=== PATIENT | male | born 1980 | race Caucasian/White ===

== ENCOUNTER 2019-10-25 02:25 | Emergency (ER) | payer OTHER ==
[~2019-10-25] VITALS: Ht 175.3 cm; Wt 61.2 kg
[~2019-10-25 02:25] MED LIST: CEPH500 PO; HYDACE5 PO; IBUP800 PO; RXCEPH500 PO; SULTRIDS PO
[2019-10-25] MEDS ORDERED: Percocet 5-3251 EACH PO (04:30)
[2019-10-25] MEDS ORDERED: Crutch1 EACH MISC (04:32)
== END 2019-10-25 05:13 | disposition home or self-care (01) ==
LOC: ER 02:25
DX: S82.301A Unspecified fracture of lower end of right tibia, initial encounter for closed fracture (principal); S82.451A Displaced comminuted fracture of shaft of right fibula, initial encounter for closed fracture; S00.01XA Abrasion of scalp, initial encounter; F10.129 Alcohol abuse with intoxication, unspecified; W22.8XXA Striking against or struck by other objects, initial encounter
CPT/HCPCS: 29515; 70450; 73590; 96372-59; 99284-25; J1885

== ENCOUNTER 2019-11-02 11:07 | Day surgery (SDC) | payer OTHER ==
[~2019-11-02] VITALS: Ht 175.3 cm; Wt 63.2 kg
[~2019-11-02 11:07] MED LIST changes: +Crutch1 EACH MISC; +Percocet 5-3251 EACH PO
[2019-11-02] MEDS ORDERED: Ventolin/Prove6.7 GM INH (11:48)
[2019-11-02] MEDS ORDERED: PRED20 PO (11:50)
[2019-11-02] MEDS ORDERED: IBUP200 PO (11:50)
--- NOTE | 2019-11-02 13:43 | NUR ---
11/02/19 1342 Byron Maguire FRACTURE BLISTERS (OPEN) NOTED TO MEDIAL AND LATERAL SIDES ON RIGHT LOWER LEG. PER DR. WIGGINS AREA NOTED TO BE 15x7.5 ON MEDIAL SIDE & 5X3.5 ON LATERAL SIDE. LOWER EXTEMITY WITH BRUISING, REDNESS, & EDEMA. PER DR. WIGGINS- EXTERNAL FIXATION VS. PROPOSED RODDING UNTIL WOUNDS ARE HEALED. AREA SHAVED, BLISTERS TRIMMED OF SKIN, & PRE CLEANED WITH HYDROGEN PEROXIDE & ALCOHOL BY DR. Singh
--- NOTE | 2019-11-02 14:49 | NUR ---
11/02/19 1449 GINO GARG PATIENT IN RECLINER WITH FOOT ELEVATED ON PILLOW. ICE PACK BEHIND KNEE. VSS. PATIENT MEDICATED X1 WITH50 MCG IV FENTANYL.
== END 2019-11-02 16:05 | disposition home or self-care (01) ==
LOC: ORSCSDS 11:07
PROVIDERS: Orthopaedic Surgery
PROC: 0QSG35Z Reposition Right Tibia with External Fixation Device, Percutaneous Approach (ICD-10-PCS; principal; 2019-11-02 13:30)
PROC: 0HBHXZZ Excision of Right Upper Leg Skin, External Approach (ICD-10-PCS; principal; 2019-11-02 13:30)
DX: S82.201A Unspecified fracture of shaft of right tibia, initial encounter for closed fracture (principal); S82.401A Unspecified fracture of shaft of right fibula, initial encounter for closed fracture; T14.8XXA Other injury of unspecified body region, initial encounter; E16.2 Hypoglycemia, unspecified; F17.210 Nicotine dependence, cigarettes, uncomplicated
CPT/HCPCS: C1713; J0171; J0690; J1100; J1885; J2250; J2370; J2405; J2704; J3010; J7120

== ENCOUNTER 2019-11-17 10:48 | Observation (INO) | payer OTHER ==
[~2019-11-17] VITALS: Ht 175.3 cm; Wt 61.3 kg
[~2019-11-17 10:48] MED LIST changes: +IBUP200 PO; +PRED20 PO; +Ventolin/Prove6.7 GM INH
--- NOTE | 2019-11-17 11:14 | NUR ---
History, Chart, Medications and Allergies reviewed before start of procedure. Lungs clear T/O to Auscultation. Patient confirms NPO status and agrees with scheduled surgery. Patient States Post-Procedure ride home has been arranged.
--- NOTE | 2019-11-17 18:10 | NUR ---
POST OP: REPORT RECIEVED FROM ZEHRA BODY TEAM MEMBER. PT TO ROOM AT ABOUT 1640. UPON ASSESSMENT PT IS A/O,VSS. RLE IS ELEVATED AND IN BOOT. BOOT TAKEN OFF FOR ASSESSMENT AND COMFORT. MODERATE AMOUNT RED DRAINAGE AT GONZALES/MID CALF. DRESSING REINFORCED WITH ABD AND VILMA WRAP, WILL MONITOR. PT REPORTS CONSTANT PAIN, 8/10 AND APPEARS UNCOMFORTABLE. CSM IS INTACT, PT ABLE TO WIGGLE TOES AND PEDAL PULSE PALPABLE. PT MEDICATED PER EMAR, ICE PLACED AND LEG ELEVATED. WILL CTM.
--- NOTE | 2019-11-18 05:06 | NUR ---
SHIFT SUMMARY LYING IN SEMI FOWLERS WITH RIGHT LEG ELEVATED ON PILLOWS. AT START OF SHIFT PAIN WAS UNCONTROLABLE, AFTER TYLENOL, CATHIE, AND TORADOL SOON THEY WERE AVAILABLE, PAIN HAS BEEN MANAGED. DRESSING HAS BEEN C/D/I SINCE REINFORCEMENT WAS APPLIED ON DAY SHIFT. DENIES PAIN WITH 0400 ROUNDS. SAFETY MEASURES IN PLACE. WILL GIVE HAND OFF TO ONCOMING SHIFT USING SBAR.
--- NOTE | 2019-11-18 13:52 | NUR ---
1230 DR WIGGINS HERE TO SEE PATIENT AND APPLIED NEW DRESSING TO RIGHT LEG. CLEANSED BY DR WIGGINS WITH PEROXIDE, XEROFOARM GAUZE OVER INCISION SITES, 4X4 GAUZE AND ABD PAD THEN WRAPPED WITH VILMA WRAPS.
[2019-11-18] MEDS ORDERED: Augmentin 875-1 EACH PO (14:15)
[2019-11-18] MEDS ORDERED: ASPI325 PO (14:16)
[2019-11-18] MEDS ORDERED: Percocet 5-3251 EACH PO (14:17)
[2019-11-18] MEDS ORDERED: ASPI325EC PO (14:18)
[2019-11-18] MEDS ORDERED: Bactrim Ds Tab1 EACH PO (14:19)
--- NOTE | 2019-11-18 14:54 | NUR ---
1445 discharged to home
== END 2019-11-18 14:30 | disposition home health service (06) ==
LOC: ORSCMMR 10:48 → SURS 17:05 → ORSCMMR 17:06 → SURS 11-18 14:30
PROVIDERS: ADMIT Orthopaedic Surgery
PROC: 0QSG06Z Reposition Right Tibia with Intramedullary Internal Fixation Device, Open Approach (ICD-10-PCS; principal; 2019-11-17 12:30)
PROC: 0YP9XYZ Removal of Other Device from Right Lower Extremity, External Approach (ICD-10-PCS; principal; 2019-11-17 12:30)
DX: S82.201D Unspecified fracture of shaft of right tibia, subsequent encounter for closed fracture with routine healing (principal); S82.402D Unspecified fracture of shaft of left fibula, subsequent encounter for closed fracture with routine healing; F17.220 Nicotine dependence, chewing tobacco, uncomplicated
CPT/HCPCS: 94762; 96365; 96367; 96375; 96376; 97110; 97112; 97161; A9270; A9270-GY; C1713; C1769; G0378; J0696; J1170; J1885; J2250; J2405; J2704; J3010; J3370; J7120; Q0163

== ENCOUNTER → 2023-12-18 | Outpatient (CLI) | payer OTHER ==
[~2023-12-18] MED LIST changes: +ASPI325 PO; +ASPI325EC PO; +Augmentin 875-1 EACH PO; +Bactrim Ds Tab1 EACH PO; +FLUTICASONE-SA1 EAC9 INH
== END ==
LOC: LAB SHORT 09:45 → LAB 09:45
DX: J18.9 Pneumonia, unspecified organism (principal)
CPT/HCPCS: 87070; 87205

== ENCOUNTER 2024-09-23 09:55 | Emergency (ER) | payer OTHER ==
[~2024-09-23] VITALS: Ht 182.9 cm; Wt 74.8 kg
[~2024-09-23 09:55] MED LIST changes: +AMOCLA875 PO
[2024-09-23] MEDS ORDERED: Ketorolac Tromethamine 30mg Vial IM ONE (14:00)
[2024-09-23] MEDS ORDERED: Diphth,Pertuss(Acell),Tet Vac 0.5 ML VIAL IM ONE (14:00)
[2024-09-23 14:30] VITALS: BP 138/96
== END 2024-09-23 14:30 | disposition home or self-care (01) ==
LOC: ER 09:55
DX: S01.01XA Laceration without foreign body of scalp, initial encounter (principal); J45.909 Unspecified asthma, uncomplicated; W01.198A Fall on same level from slipping, tripping and stumbling with subsequent striking against other object, initial encounter; Z87.891 Personal history of nicotine dependence
CPT/HCPCS: 12004; 70450; 72125; 90471; 90715; 96372-59; 99283-25; J1885

== ENCOUNTER 2024-10-05 09:12 | Inpatient (IN) | payer OTHER ==
[~2024-10-05] VITALS: Ht 175.3 cm; Wt 65.7 kg
[2024-10-05 10:49] LABS: BASOPHILS ABSOLUTE AUTO 0.04 K/mm3 (0.00-0.23); BASOPHILS PERCENT AUTO 0 % (0-2); EOSINOPHILS ABSOLUTE AUTO 0.01 K/mm3 (0.00-0.68); EOSINOPHILS PERCENT AUTO 0 % (0-6); Hematocrit 47.4 % (37.0-53.0); Hemoglobin 16.7 g/dL (13.5-17.5); IMMATURE GRAN ABSOLUTE AUTO 0.09 K/mm3 (0.00-0.10); IMMATURE GRAN PERCENT AUTO 1 % (0-1); LYMPHOCYTES ABSOLUTE AUTO 1.34 K/mm3 (0.84-5.20); LYMPHOCYTES PERCENT AUTO 9 % (21-46); MONOCYTES ABSOLUTE AUTO 1.36 K/mm3 (0.16-1.47); MONOCYTES PERCENT AUTO 9 % (4-13); Mean Corpuscular HGB 35.2 pg (26.0-34.0); Mean Corpuscular HGB Conc 35.2 g/dL (31.5-36.5); Mean Corpuscular Volume 100 fL (80-100); Mean Platelet Volume 8.6 fL (9.1-12.4); NEUTROPHILS ABSOLUTE AUTO 12.82 K/mm3 (1.96-9.15); NEUTROPHILS PERCENT AUTO 82 % (41-73); Platelet Count 244 K/mm3 (150-400); RDW Coefficient Variation 14.2 % (11.7-14.2); RDW Standard Deviation 52.9 fL (35.1-46.3); Red Blood Cell Count 4.75 M/mm3 (4.30-5.90); White Blood Cell Count 15.66 K/mm3 (4.00-11.30)
[2024-10-05 11:19] LABS: Albumin/Globulin Ratio 0.7 (0.8-1.8); Bilirubin, Total 3.4 mg/dL (0.1-1.0); Bun/Creatinine Ratio 14.6 (12.0-20.0); Calcium, Blood 9.4 mg/dL (8.5-10.1); Creatinine, Blood 0.82 mg/dL (0.60-1.20); Globulin, Blood 4.6 g/dL (2.2-4.0); Potassium, Blood 4.5 mmol/L (3.5-5.5); Total Protein, Blood 7.6 g/dL (6.4-8.2)
[2024-10-05 13:02] LABS: Source, Urine Clean Catch
[2024-10-05 13:12] LABS: Appearance, Urine Cloudy (Clear); Blood, Urine 5+ (Neg); Color, Urine Amber (P-Yellow); Glucose Qualitative, Urine Neg (Neg); Ketones, Urine 1+ (Neg); Leukocyte Esterase, Urine 3+ (Neg); Nitrite, Urine Pos (Neg); Protein, Urine 4+ (Neg); Specific Gravity, Urine 1.025 (1.003-1.022); Urobilinogen, Urine 1+ (Normal)
[2024-10-05 14:04] LABS: Bacteria Mod /hpf; Bilirubin, Urine 1+ (Neg); Red Blood Cells, Urine TNTC /hpf (0-2); Squamous Epithelial Cells Not Seen /hpf (Few); White Blood Cells, Urine TNTC /hpf (0-5)
[2024-10-05] MEDS ORDERED: FLUTICASONE-SA1 EAC9 (14:39)
[2024-10-05] MEDS ORDERED: Ondansetron HCl 2 MG / ML 2ML Vial IV ONE (15:15)
[2024-10-05] MEDS ORDERED: CefTRIAXone Sodium 1,000 MG in NS 100 ML IV ONE (15:15)
[2024-10-05] MEDS ORDERED: NS 1,000 ML IV SCH ×3 (15:20→18:00)
[2024-10-05] MEDS ORDERED: PHENobarbital Sodium 65MG / ML 1ML Vial IV ONE (15:20)
[2024-10-05 16:15] LABS: International Normalized Ratio 1.1; Prothrombin Time Results 11.7 Sec (9.7-11.5)
[2024-10-05] MEDS ORDERED: LORazepam 2 MG/ML 1ML Injection IV PRN ×2 (18:00)
[2024-10-05] MEDS ORDERED: Ondansetron HCl 2 MG / ML 2ML Vial IV PRN (18:00)
[2024-10-05] MEDS ORDERED: FLU VACC TS2024-25(6MOS UP)/PF 45 MCG/0.5 ML SYRINGE IM SCH (18:00)
[2024-10-05] MEDS ORDERED: HydrALAZINE HCl 20 MG / ML 1ML Vial IV PRN (18:00)
[2024-10-05] MEDS ORDERED: ChlordiazePOXIDE 25 MG Cap PO PRN ×2 (18:05)
[2024-10-05] MEDS ORDERED: Mometasone/Formoterol MDI 200/5 mcg 13 GM INH SCH (18:10)
[2024-10-05] MEDS ORDERED: Folic Acid 1 MG in NS 50 ML IV SCH (18:30)
[2024-10-05] MEDS ORDERED: Thiamine HCl 100 MG in NS 50 ML IV SCH (19:00)
[2024-10-05 19:56] LABS: Bilirubin, Direct 1.1 mg/dL (0.0-0.3); Bilirubin, Indirect 1.7 mg/dL (0.1-0.7); Bilirubin, Total 2.8 mg/dL (0.1-1.0)
[2024-10-05] MEDS ORDERED: Lactobacil 2-S.Thermo-Bifido 1 1 Cap PO SCH (21:00)
[2024-10-05 21:47] VITALS: BP 143/94
[2024-10-06 04:07] VITALS: BP 149/99
[2024-10-06 05:10] LABS: BASOPHILS ABSOLUTE AUTO 0.05 K/mm3 (0.00-0.23); BASOPHILS PERCENT AUTO 1 % (0-2); EOSINOPHILS ABSOLUTE AUTO 0.12 K/mm3 (0.00-0.68); EOSINOPHILS PERCENT AUTO 1 % (0-6); Hematocrit 39.4 % (37.0-53.0); Hemoglobin 13.8 g/dL (13.5-17.5); IMMATURE GRAN ABSOLUTE AUTO 0.04 K/mm3 (0.00-0.10); IMMATURE GRAN PERCENT AUTO 0 % (0-1); LYMPHOCYTES ABSOLUTE AUTO 1.75 K/mm3 (0.84-5.20); LYMPHOCYTES PERCENT AUTO 18 % (21-46); MONOCYTES ABSOLUTE AUTO 0.75 K/mm3 (0.16-1.47); MONOCYTES PERCENT AUTO 8 % (4-13); Mean Corpuscular HGB 35.1 pg (26.0-34.0); Mean Corpuscular Volume 100 fL (80-100); Mean Platelet Volume 9.6 fL (9.1-12.4); NEUTROPHILS ABSOLUTE AUTO 7.21 K/mm3 (1.96-9.15); NEUTROPHILS PERCENT AUTO 73 % (41-73); Platelet Count 217 K/mm3 (150-400); RDW Coefficient Variation 13.7 % (11.7-14.2); RDW Standard Deviation 50.5 fL (35.1-46.3); Red Blood Cell Count 3.93 M/mm3 (4.30-5.90); White Blood Cell Count 9.92 K/mm3 (4.00-11.30)
[2024-10-06 05:51] LABS: Albumin, Blood 2.3 g/dL (3.4-5.0); Albumin/Globulin Ratio 0.7 (0.8-1.8); Bilirubin, Total 2.1 mg/dL (0.1-1.0); Bun/Creatinine Ratio 24.3 (12.0-20.0); Calcium, Blood 8.2 mg/dL (8.5-10.1); Creatinine, Blood 0.66 mg/dL (0.60-1.20); Globulin, Blood 3.4 g/dL (2.2-4.0); Magnesium, Blood 1.6 mg/dL (1.6-2.4); Potassium, Blood 3.3 mmol/L (3.5-5.5); Total Protein, Blood 5.7 g/dL (6.4-8.2)
[2024-10-06] MEDS ORDERED: Potassium Chl 20MEQ/Water100ML 100 ML IV SCH (06:55)
[2024-10-06 07:30] VITALS: BP 142/96
[2024-10-06 12:49] LABS: Stool Occult Blood Guaiac 1 Pos (Neg)
[2024-10-06] MEDS ORDERED: Insulin Human Lispro 100 Units/ML 3ML Syringe SC ONE (15:00)
[2024-10-06 15:44] VITALS: BP 150/90
[2024-10-06] MEDS ORDERED: CefTRIAXone Sodium 1,000 MG in NS 100 ML IV SCH (16:00)
[2024-10-06 16:37] LABS: Hematocrit 38.4 % (37.0-53.0); Hemoglobin 13.8 g/dL (13.5-17.5)
--- NOTE | 2024-10-06 18:06 | NUR ---
PATIENT A/O X 4. PATIENT STATES HE HAS BEEN FEELING MUCH BETTER THIS SHIFT. PATIENT HAD A FORMED STOOL WHICH WAS NOT BLACK IN LOOSE IN COLOR. PATIENT URINE HAS CLEARED TO A YELLOW IN COLOR. PATIENT IS HOPING TO GO HOME TOMORROW AND GET BACK TO WORK. PATIENT HAS BEEN ABLE TO TOLERATE FOOD WITH NO TREMORS NOTED. PATIENT DENIED ANY OTHER NEEDS AND WILL CALL FOR ANY ASSISTANCE NEEDED.
[2024-10-06 19:25] VITALS: BP 124/94
[2024-10-06] MEDS ORDERED: Banana Flakes/Tos 1 EA Powder Pack PO SCH (21:00)
[2024-10-06] MEDS ORDERED: Protein Supplement 30 ML UD PO SCH (21:00)
[2024-10-07 02:03] VITALS: BP 127/89
[2024-10-07 05:28] LABS: BASOPHILS ABSOLUTE AUTO 0.03 K/mm3 (0.00-0.23); BASOPHILS PERCENT AUTO 1 % (0-2); EOSINOPHILS ABSOLUTE AUTO 0.21 K/mm3 (0.00-0.68); EOSINOPHILS PERCENT AUTO 3 % (0-6); Hematocrit 38.7 % (37.0-53.0); Hemoglobin 13.6 g/dL (13.5-17.5); IMMATURE GRAN ABSOLUTE AUTO 0.03 K/mm3 (0.00-0.10); IMMATURE GRAN PERCENT AUTO 1 % (0-1); LYMPHOCYTES ABSOLUTE AUTO 1.21 K/mm3 (0.84-5.20); LYMPHOCYTES PERCENT AUTO 19 % (21-46); MONOCYTES ABSOLUTE AUTO 0.68 K/mm3 (0.16-1.47); MONOCYTES PERCENT AUTO 11 % (4-13); Mean Corpuscular HGB 35.1 pg (26.0-34.0); Mean Corpuscular HGB Conc 35.1 g/dL (31.5-36.5); Mean Corpuscular Volume 100 fL (80-100); Mean Platelet Volume 9.6 fL (9.1-12.4); NEUTROPHILS ABSOLUTE AUTO 4.28 K/mm3 (1.96-9.15); NEUTROPHILS PERCENT AUTO 66 % (41-73); Platelet Count 213 K/mm3 (150-400); RDW Coefficient Variation 13.7 % (11.7-14.2); RDW Standard Deviation 50.4 fL (35.1-46.3); Red Blood Cell Count 3.87 M/mm3 (4.30-5.90); White Blood Cell Count 6.44 K/mm3 (4.00-11.30)
[2024-10-07 05:44] LABS: Bun/Creatinine Ratio 12.3 (12.0-20.0); Creatinine, Blood 0.73 mg/dL (0.60-1.20); Potassium, Blood 3.3 mmol/L (3.5-5.5)
[2024-10-07] MEDS ORDERED: Potassium Chloride 20 MEQ TabCR PO ONE (07:00)
--- NOTE | 2024-10-07 07:27 | NUR ---
MANAGER PROGRAM MANAGEMENT SUMMARY THIS WAS THE SECOND NIGHT FISH TAKEN CARE OF GITA. ON HIS FIRST NIGHT HERE HIS ETOH WITHDRAWL WAS VERY MILD. THIS SHIFT HOWEVER, HIS SYMPTOMS DID GET WORSE OVERNIGHT. HE STARTED HAVING SIGNIFICANT ANXIETY, COMPLETELY UNABLE TO FALL ASLEEP, MODERATE TREMORS, AND HE STARTED HAVING VISUAL HALLUCINATIONS. HE KEPT ASKING ME "IS THIS HOSPITAL HAUNTED?". HE KEPT REPORTED SEEING THINGS IN THE ROOM THAT SHOULDNT BE THERE AND SHADOWS AND VOICES THAT HE WASNT SURE WERE REAL OR NOT. I TRIED TO CONVINCE HIM THAT THE HOSPITAL WASNT HAUNTED BUT HE DIDNT BELIEVE ME. HE RESPONDED VERY WELL TO ATIVAN AND LIBRIUM AND WAS FINALLY ABLE TO FALL ASLEEP IN BETWEEN DOSES. HE REPORTS THAT THIS IS THE FIRST TIME HE HAS BEEN ABLE TO FALL ASLEEP IN SEVERAL DAYS. 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
[2024-10-07 07:44] VITALS: BP 140/94
[2024-10-07 11:33] LABS: Albumin, Blood 2.7 g/dL (3.4-5.0); Albumin/Globulin Ratio 0.7 (0.8-1.8); Bilirubin, Total 1.4 mg/dL (0.1-1.0); Bun/Creatinine Ratio 18.8 (12.0-20.0); Calcium, Blood 8.8 mg/dL (8.5-10.1); Creatinine, Blood 0.64 mg/dL (0.60-1.20); Globulin, Blood 4.1 g/dL (2.2-4.0); Potassium, Blood 3.7 mmol/L (3.5-5.5); Total Protein, Blood 6.8 g/dL (6.4-8.2)
[2024-10-07] MEDS ORDERED: CefTRIAXone Sodium 1,000 MG in NS 100 ML IV ONE (12:20)
[2024-10-07] MEDS ORDERED: VISBIOME 112.51 EACH PO (13:36)
[2024-10-07] MEDS ORDERED: SULTRIDS PO (13:36)
[2024-10-07 19:57] LABS: HEPATITIS A ANTIBODY, IGM Negative (Negative); HEPATITIS B CORE ANTIBODY, IGM Negative (Negative); HEPATITIS B SURFACE ANTIGEN Negative (Negative); HEPATITIS C AB CIA INTERP Negative (Negative); HEPATITIS C ANTIBODY CIA INDEX 0.14 IV
== END 2024-10-07 14:16 | disposition home or self-care (01) | DRG 872 ==
LOC: ER 09:12 → ERHOLD 17:57 → MEDS 17:57
PROVIDERS: Hospitalist; Physician Assistant; Student in an Organized Health Care Education/Training Program; ADMIT Student in an Organized Health Care Education/Training Program
DX: A41.9 Sepsis, unspecified organism (principal); N30.01 Acute cystitis with hematuria; K92.1 Melena; F10.239 Alcohol dependence with withdrawal, unspecified; K76.0 Fatty (change of) liver, not elsewhere classified; R65.20 Severe sepsis without septic shock; F17.220 Nicotine dependence, chewing tobacco, uncomplicated; K70.10 Alcoholic hepatitis without ascites; J45.909 Unspecified asthma, uncomplicated; E87.6 Hypokalemia; Z87.81 Personal history of (healed) traumatic fracture; Z98.890 Other specified postprocedural states
CPT/HCPCS: 36415; 74177; 76705; 80048; 80053; 80074; 81001; 82247; 82248; 82270; 82977; 83605; 83690; 83735; 85014; 85018; 85025; 85610; 87077; 87086; 87186; 94640; 94664; 94760; 96365-59; 96375; 99285-25; A9270; J0696; J2060; J2405; J2560; J3411; J3480; J7030; Q9967

== ENCOUNTER 2024-12-14 02:22 | Inpatient (IN) | payer OTHER ==
[~2024-12-14] VITALS: Ht 175.3 cm; Wt 63.1 kg
[~2024-12-14 02:22] MED LIST changes: +FLUTICASONE-SA1 EAC9; +VISBIOME 112.51 EACH PO
[2024-12-14] MEDS ORDERED: Lactated Ringer's 1,000 ML IV ONE ×3 (02:55→10:00)
[2024-12-14 03:24] LABS: BASOPHILS ABSOLUTE AUTO 0.04 K/mm3 (0.00-0.23); BASOPHILS PERCENT AUTO 1 % (0-2); EOSINOPHILS ABSOLUTE AUTO 0.14 K/mm3 (0.00-0.68); EOSINOPHILS PERCENT AUTO 2 % (0-6); Hemoglobin 19.5 g/dL (13.5-17.5); IMMATURE GRAN PERCENT AUTO 0 % (0-1); LYMPHOCYTES ABSOLUTE AUTO 3.55 K/mm3 (0.84-5.20); LYMPHOCYTES PERCENT AUTO 54 % (21-46); MONOCYTES ABSOLUTE AUTO 0.68 K/mm3 (0.16-1.47); MONOCYTES PERCENT AUTO 10 % (4-13); Mean Corpuscular HGB 33.2 pg (26.0-34.0); Mean Corpuscular HGB Conc 35.3 g/dL (31.5-36.5); Mean Corpuscular Volume 94 fL (80-100); Mean Platelet Volume 8.4 fL (9.1-12.4); NEUTROPHILS ABSOLUTE AUTO 2.22 K/mm3 (1.96-9.15); NEUTROPHILS PERCENT AUTO 34 % (41-73); Platelet Count 185 K/mm3 (150-400); RDW Coefficient Variation 12.2 % (11.7-14.2); RDW Standard Deviation 42.8 fL (35.1-46.3); Red Blood Cell Count 5.87 M/mm3 (4.30-5.90); White Blood Cell Count 6.63 K/mm3 (4.00-11.30)
[2024-12-14 03:25] LABS: Hematocrit 55.2 % (37.0-53.0)
[2024-12-14 03:48] LABS: Source, Urine Clean Catch
[2024-12-14 03:51] LABS: Bilirubin, Urine Neg (Neg); Blood, Urine 3+ (Neg); Glucose Qualitative, Urine Neg (Neg); Ketones, Urine Neg (Neg); Leukocyte Esterase, Urine 3+ (Neg); Nitrite, Urine Neg (Neg); Protein, Urine 2+ (Neg); Urobilinogen, Urine NORM (Normal)
[2024-12-14 03:54] LABS: Albumin, Blood 3.2 g/dL (3.4-5.0); Albumin/Globulin Ratio 0.7 (0.8-1.8); Bilirubin, Total 0.8 mg/dL (0.1-1.0); Bun/Creatinine Ratio 5.2 (12.0-20.0); Calcium, Blood 8.3 mg/dL (8.5-10.1); Creatinine, Blood 0.76 mg/dL (0.60-1.20); Globulin, Blood 4.5 g/dL (2.2-4.0); Potassium, Blood 3.3 mmol/L (3.5-5.5); Total Protein, Blood 7.7 g/dL (6.4-8.2)
[2024-12-14 04:02] LABS: Appearance, Urine Hazy (Clear); Bacteria Many /hpf; Color, Urine Yellow (P-Yellow); Red Blood Cells, Urine 0-2 /hpf (0-2); Squamous Epithelial Cells Not Seen /hpf (Few); White Blood Cells, Urine TNTC /hpf (0-5)
[2024-12-14] MEDS ORDERED: CefTRIAXone Sodium 1,000 MG in NS 50 ML IV ONE (04:15)
[2024-12-14 04:16] LABS: U Amphetamine Screen Not Detected; U Barbituate Screen Not Detected; U Benzodiazapine Screen Not Detected; U Buprenorphine Screen Not Detected; U Cannabinoids Screen DETECTED; U Cocaine Screen Not Detected; U Methadone Screen Not Detected; U Methamphetamine Screen Not Detected; U Opiates Screen Not Detected; U Oxycodone Screen Not Detected; U Phencyclidine Screen Not Detected
[2024-12-14] MEDS ORDERED: Ondansetron HCl 2 MG / ML 2ML Vial IV PRN (04:50)
[2024-12-14] MEDS ORDERED: FLU VACC TS2024-25(6MOS UP)/PF 45 MCG/0.5 ML SYRINGE IM ONE (04:50)
[2024-12-14] MEDS ORDERED: Acetaminophen 325 MG TABLET PO PRN (04:50)
[2024-12-14] MEDS ORDERED: LORazepam 2 MG/ML 1ML Injection IV PRN ×2 (04:50→15:30)
[2024-12-14] MEDS ORDERED: Potassium Chloride 20 MEQ TabCR PO ONE ×2 (05:00→07:00)
[2024-12-14] MEDS ORDERED: Thiamine HCl 100 MG in NS 50 ML IV SCH (06:00)
[2024-12-14] MEDS ORDERED: Folic Acid 1 MG in NS 50 ML IV SCH (06:00)
[2024-12-14 06:20] LABS: Albumin/Globulin Ratio 0.7 (0.8-1.8); Bilirubin, Total 0.8 mg/dL (0.1-1.0); Bun/Creatinine Ratio 5.2 (12.0-20.0); Calcium, Blood 8.2 mg/dL (8.5-10.1); Creatinine, Blood 0.77 mg/dL (0.60-1.20); Globulin, Blood 4.3 g/dL (2.2-4.0); Potassium, Blood 3.2 mmol/L (3.5-5.5); Total Protein, Blood 7.3 g/dL (6.4-8.2)
[2024-12-14 08:39] VITALS: BP 132/102
[2024-12-14] MEDS ORDERED: [UNRECOGNIZED DRUG - OTHER] PO (08:52)
[2024-12-14] MEDS ORDERED: VIT D3-VIT K21 EACH PO (08:57)
[2024-12-14] MEDS ORDERED: Apple Cider Vi300 MG PO (08:59)
[2024-12-14] MEDS ORDERED: Lactobacil 2-S.Thermo-Bifido 1 1 Cap PO SCH (09:00)
[2024-12-14 15:14] VITALS: BP 140/100
[2024-12-14] MEDS ORDERED: ChlordiazePOXIDE 25 MG Cap PO PRN (15:30)
[2024-12-14 19:56] VITALS: BP 148/101
--- NOTE | 2024-12-14 20:07 | NUR ---
SHIFT SUMMARY PT A&OX4. PT ADMITTED DUE TO UTI. PT ARRIVED TO FLOOR THIS AM. PT ALSO HAS HX OF ETOH, AND GOING THROUGH SOME WITHDRAWL SYMPTOMS. LAST CIWA WAS 9 DUE TO ANXIETY/TREMORS. GAVE PT LIBRUM TODAY. PT REPORTED "IT NOT DOING ANYTHING BUT ABLE TO SLEEP." REPORTED TO NIGHT NURSE SHE SHOULD ADMINISTER ATIVAN IF CIWA SCORE ABOVE 8 PER ORDER. PT REPORTS CHRONICALLY COUGHING UP MUCUS. PT INDEPENDENT IN ROOM. PT REPORTS HX OF USING TOBACO CHEW, PT REPORTS "NOT HAVING IT WITH HIM" PT EDUCATED ON [facility] [employer] [facility]IC[facility]. VSS. PT ON ROOM AIR. PT ON TELE. PT RECEIVED BAG OF LR DURING SHIFT. PT ORIENTED TO UNIT/CALL LIGHT/FALL PRECAUTIONS.
[2024-12-14 23:14] VITALS: BP 154/98
--- NOTE | 2024-12-15 03:37 | NUR ---
FRUIT INSPECTOR SUMMARY: PT ADMITTED FOR SEPSIS SECONDARY TO UTI. PT NOTED TO HAVE HX OF ETOH USE AND IS EXPERIENCING ETOH WITHDRAWAL SYMPTOMS. CIWA SCORE OF 12 AT BEGINNING OF SHIFT, MEDICATED WITH LIBRIUM WITH MINIMAL EFFECT. MEDICATED WITH PRN ATIVAN 1MG PER EMAR ORDER, EFFECTIVE. PT A&O X4. MAKES NEEDS KNOWN. TELE IN PLACE: SR IN 70'S. INDEPENDENT WITH CARE IN ROOM. CALL LIGHT IN REACH. CARES CONTINUE ORDERED.
[2024-12-15 03:43] VITALS: BP 142/95
[2024-12-15] MEDS ORDERED: NS 250 ML IV PRN (05:45)
[2024-12-15] MEDS ORDERED: CefTRIAXone Sodium 1,000 MG in NS 100 ML IV SCH (06:00)
[2024-12-15 06:01] LABS: BASOPHILS ABSOLUTE AUTO 0.04 K/mm3 (0.00-0.23); BASOPHILS PERCENT AUTO 1 % (0-2); EOSINOPHILS ABSOLUTE AUTO 0.15 K/mm3 (0.00-0.68); EOSINOPHILS PERCENT AUTO 2 % (0-6); Hematocrit 53.5 % (37.0-53.0); Hemoglobin 18.3 g/dL (13.5-17.5); IMMATURE GRAN ABSOLUTE AUTO 0.02 K/mm3 (0.00-0.10); IMMATURE GRAN PERCENT AUTO 0 % (0-1); LYMPHOCYTES ABSOLUTE AUTO 1.29 K/mm3 (0.84-5.20); LYMPHOCYTES PERCENT AUTO 19 % (21-46); MONOCYTES ABSOLUTE AUTO 0.83 K/mm3 (0.16-1.47); MONOCYTES PERCENT AUTO 12 % (4-13); Mean Corpuscular HGB 33.2 pg (26.0-34.0); Mean Corpuscular HGB Conc 34.2 g/dL (31.5-36.5); Mean Corpuscular Volume 97 fL (80-100); Mean Platelet Volume 9.2 fL (9.1-12.4); NEUTROPHILS ABSOLUTE AUTO 4.36 K/mm3 (1.96-9.15); NEUTROPHILS PERCENT AUTO 65 % (41-73); Platelet Count 153 K/mm3 (150-400); RDW Coefficient Variation 12.2 % (11.7-14.2); RDW Standard Deviation 43.7 fL (35.1-46.3); Red Blood Cell Count 5.52 M/mm3 (4.30-5.90); White Blood Cell Count 6.69 K/mm3 (4.00-11.30)
[2024-12-15 06:23] LABS: Bun/Creatinine Ratio 9.8 (12.0-20.0); Calcium, Blood 9.4 mg/dL (8.5-10.1); Creatinine, Blood 0.82 mg/dL (0.60-1.20); Potassium, Blood 3.8 mmol/L (3.5-5.5)
[2024-12-15 07:12] VITALS: BP 133/93
[2024-12-15] MEDS ORDERED: Lactated Ringer's 1,000 ML IV SCH (07:20)
[2024-12-15] MEDS ORDERED: Enoxaparin 40 MG/0.4 ML SYR SC SCH (09:00)
[2024-12-15 11:39] VITALS: BP 135/97
[2024-12-15 15:45] VITALS: BP 146/95
[2024-12-15 19:24] VITALS: BP 146/106
--- NOTE | 2024-12-15 19:36 | NUR ---
SHIFT SUMMARY PT A&OX4. PT ADMITTED DUE TO SEPSIS SEC. TO UTI, PT ALSO EXPERIENCING ALOCHOL WITHDRAWL. CIWAS COMPLETED, LAST CIWA WAS 9 DUE TO SWEATS/ANXIETY/TREMORS. PT REPORTS RELIEF GETTING LIBRIUM. STATES ATIVAN KNOCKED HIM OUT LAST NIGHT. PT CALLS APPROPRIATE. PT INDEPENDENT IN ROOM. PT EATS ADEQUATE. PT ON ROOM AIR. PT ON TELE. PT IN BED, BED IN LOWEST POSITION. CALL LIGHT IN REACH. PT RECEIVED BAG OF LR TODAY. VSS.
[2024-12-15 23:49] VITALS: BP 149/98
[2024-12-16 04:04] VITALS: BP 138/96
--- NOTE | 2024-12-16 05:41 | NUR ---
SUMMARY: PT A/OX4, IS INDEPENDENT IN ROOM AND CALLS APPROPRIATELY TO SPECIFY NEEDS. CIWA'S WERE 0-9 THIS SHIFT W/ANXIETY, TREMOR AND DIAPHORESIS OBSERVED. 25MG PO LIBRIUM AND 1MG IV ATIVAN RECEIVED PRN FOR GOOD EFFECT. HE REPORTS PRODUCTIVE COUGH W/LARGE AMT WHITE MUCOUSY SPUTUM BUT DENIES S/S RESP DISTRESS. HE ALSO C/O ABDO BLOATING, FREQ LOOSE BM'S, FLATUS AND POOR APPETITE FOR APPROX 1 MONTH FOLLOWING IV ABX FOR PNM, PLAN TO ALERT MD OF POSS.NEED FOR GI PANEL. PT ON TELE IN NSR AT 90'S BPM. VSS/AFEBRILE, NO ACUTE CHANGES. WCTM AND REPORT TO DAY RN.
[2024-12-16 06:37] LABS: BASOPHILS ABSOLUTE AUTO 0.04 K/mm3 (0.00-0.23); BASOPHILS PERCENT AUTO 1 % (0-2); EOSINOPHILS PERCENT AUTO 3 % (0-6); Hematocrit 51.7 % (37.0-53.0); Hemoglobin 18.6 g/dL (13.5-17.5); IMMATURE GRAN ABSOLUTE AUTO 0.01 K/mm3 (0.00-0.10); IMMATURE GRAN PERCENT AUTO 0 % (0-1); LYMPHOCYTES ABSOLUTE AUTO 1.56 K/mm3 (0.84-5.20); LYMPHOCYTES PERCENT AUTO 26 % (21-46); MONOCYTES ABSOLUTE AUTO 0.78 K/mm3 (0.16-1.47); MONOCYTES PERCENT AUTO 13 % (4-13); Mean Corpuscular HGB 33.9 pg (26.0-34.0); Mean Corpuscular Volume 94 fL (80-100); NEUTROPHILS PERCENT AUTO 57 % (41-73); Platelet Count 151 K/mm3 (150-400); RDW Coefficient Variation 11.9 % (11.7-14.2); RDW Standard Deviation 41.3 fL (35.1-46.3); Red Blood Cell Count 5.48 M/mm3 (4.30-5.90); White Blood Cell Count 5.99 K/mm3 (4.00-11.30)
[2024-12-16 07:08] LABS: Albumin, Blood 2.8 g/dL (3.4-5.0); Albumin/Globulin Ratio 0.7 (0.8-1.8); Bilirubin, Total 1.5 mg/dL (0.1-1.0); Creatinine, Blood 0.73 mg/dL (0.60-1.20); Globulin, Blood 4.1 g/dL (2.2-4.0); Potassium, Blood 3.5 mmol/L (3.5-5.5); Total Protein, Blood 6.9 g/dL (6.4-8.2)
[2024-12-16 08:13] VITALS: BP 138/91
[2024-12-16] MEDS ORDERED: Cefpodoxime Proxetil 200 MG Tab PO SCH (09:00)
[2024-12-16] MEDS ORDERED: Cephalexin Monohydrate 500 MG Cap PO SCH (09:00)
[2024-12-16 12:06] VITALS: BP 114/71
[2024-12-16 16:26] VITALS: BP 140/102
--- NOTE | 2024-12-16 17:31 | NUR ---
SHIFT SUMMARY NO ACUTE CHANGES, VSS, TELE IN PLACE (SR @ 74). CIWA SCORE BETWEEN 3-6 T/O SHIFT, TREATED ONE TIME WITH 1 MG ATIVAN FOR TREMORS. PT DENIES PAIN, PRIMARY COMPLAINT IS SWEATING. PT REPORTS POOR APPETITE, ATTEMPTING TO TAKE BITES AT MEAL TIMES. PT REMAINS ON RA, SOB WITH EXERTION AND THIS IS NORMAL WITH HIS HX OF ASTHMA. PT INDEPENDENT IN ROOM, USES CALL LIGHT APPROPRIATELY. PT CURRENTLY RESTING IN ROOM WITH CALL LIGHT WITHIN REACH AND BED IN LOWEST POSITION.
[2024-12-16 19:27] VITALS: BP 125/91
--- NOTE | 2024-12-16 22:23 | NUR ---
PT LEFT AMA APPROXIMATELY 2200. PT PULLED OUT HIS IV AND TOOK OUT THE TELEMONITOR LEADS. PT DID NOT NOTIFY THIS DESIGNATED NURSE. PT WAS PREVIOUSLY EDUCATED R/T ETOH WITHDRAWAL SX, CIWA PROTOCOL AND INFECTIOUS DISEASE PROCESS. PT WAS GIVEN LIBRIUM TO CIWA SCORE OF 4 R/T TREMORS. PT DENIED OTHER SX. SOON AFTER PT ASKED FOR IV ATIVAN. THIS NURSE EXPLAINED THE CIWA PROTOCOL AND EXPLAINED THAT AFTER THE MEDICATION PASS TO THREE OTHER PATIENTS, THIS NURSE WOULD RE-EVALUATE PT'S WITHDRAWAL SX. PT STATED"I HAVE BEEN GIVEN IV ATIVAN/SLEEP MEDICATION SO FAR EVERY TWO HOURS. IF I DON'T GET THE ATIVAN, I MIGHT WELL GO HOME. I HAVE A 5TH OF WHISKEY, I CAN GO SLEEP AFTER DRINKING THAT AND GO TO WORK". PT ALSO STATED:"I HESITANTLY AGREED TO THIS SEVEN DAY SOBRIETY PROGRAM SO YOU CAN FIGURE OUT WHAT IS CAUSING THIS". WHEN THIS NURSE ASKED A CLARIFICATION IF THE SOBRIETY PROGRAM WAS THROUGH ADAPT POSSIBLY, PT DID NOT HAVE AN ANSWER. APPROXIMATELY 2200, REELING AND TUBING MACHINE OPERATOR TOLD THAT THE PT LEFT AMA. THIS HUMAN PROJECTILE SAW THE PT AT THE END OF THE HALLWAY PULLING OUT OF HIS IV. THEN THIS NURSE SAW THE PT AT THE END OF THE SCU HALLWAY TALKING TO A NURSE. THIS NURSE MET THE PT ON THE HALLWAY AND PT STATED" MY NUMBER WENT FROM FOUR TO 14!" THEN PT SHOUTED:"YOU TOLD ME YOU WOULD BE BACK IN TEN MINUTES AND YOU DIDN'T!" PT THEN WALKED AWAY TOWARDS THE ELEVATORS WITH ALL HIS BELONGINGS. SHYANN BARKER NOTIFIED.
[2024-12-17] MEDS ORDERED: Cefpodoxime Proxetil 200 MG Tab PO SCH (09:00)
== END 2024-12-16 22:12 | disposition left against medical advice (07) | DRG 690 ==
LOC: ER 02:22 → ERHOLD 02:23 → MEDS 08:31
PROVIDERS: Emergency Medicine; ADMIT Student in an Organized Health Care Education/Training Program
DX: N39.0 Urinary tract infection, site not specified (principal); R65.10 Systemic inflammatory response syndrome (SIRS) of non-infectious origin without acute organ dysfunction; F10.239 Alcohol dependence with withdrawal, unspecified; Z16.12 Extended spectrum beta lactamase (ESBL) resistance; F41.9 Anxiety disorder, unspecified; J45.909 Unspecified asthma, uncomplicated; Z98.890 Other specified postprocedural states; F17.220 Nicotine dependence, chewing tobacco, uncomplicated; K76.0 Fatty (change of) liver, not elsewhere classified; E87.6 Hypokalemia; Z53.29 Procedure and treatment not carried out because of patient's decision for other reasons; Y90.8 Blood alcohol level of 240 mg/100 ml or more
CPT/HCPCS: 36415; 80048; 80053; 80320; 81001; 82140; 83605; 83735; 85025; 87077; 87086; 87186; 96361; 96365; 96366; 96367; 99285-25; A9270; G0378; J0696; J2060; J2405; J3411; J7050; J7120

== ENCOUNTER 2024-12-30 22:29 | Emergency (ER) | payer OTHER ==
[~2024-12-30] VITALS: Ht 175.3 cm; Wt 64.9 kg
[~2024-12-30 22:29] MED LIST changes: +Apple Cider Vi300 MG PO; +VIT D3-VIT K21 EACH PO; +[UNRECOGNIZED DRUG - OTHER] PO
[2024-12-30 23:23] LABS: CORONAVIRUS COVID-19 AG Negative (NEGATIVE); INFLUENZA A AG Negative (NEGATIVE); INFLUENZA B AG Negative (NEGATIVE)
[2024-12-31] MEDS ORDERED: NS 1,000 ML IV SCH (00:40)
[2024-12-31] MEDS ORDERED: Ketorolac Tromethamine 30mg Vial IV ONE (00:40)
[2024-12-31 00:41] LABS: BASOPHILS ABSOLUTE AUTO 0.07 K/mm3 (0.00-0.23); BASOPHILS PERCENT AUTO 0 % (0-2); EOSINOPHILS ABSOLUTE AUTO 0.04 K/mm3 (0.00-0.68); EOSINOPHILS PERCENT AUTO 0 % (0-6); Hematocrit 54.2 % (37.0-53.0); Hemoglobin 19.3 g/dL (13.5-17.5); IMMATURE GRAN ABSOLUTE AUTO 0.11 K/mm3 (0.00-0.10); IMMATURE GRAN PERCENT AUTO 1 % (0-1); LYMPHOCYTES PERCENT AUTO 10 % (21-46); MONOCYTES ABSOLUTE AUTO 1.49 K/mm3 (0.16-1.47); MONOCYTES PERCENT AUTO 8 % (4-13); Mean Corpuscular HGB Conc 35.6 g/dL (31.5-36.5); Mean Corpuscular Volume 93 fL (80-100); Mean Platelet Volume 9.5 fL (9.1-12.4); NEUTROPHILS ABSOLUTE AUTO 14.79 K/mm3 (1.96-9.15); NEUTROPHILS PERCENT AUTO 80 % (41-73); Platelet Count 420 K/mm3 (150-400); RDW Standard Deviation 41.8 fL (35.1-46.3); Red Blood Cell Count 5.85 M/mm3 (4.30-5.90)
[2024-12-31 00:56] LABS: Albumin, Blood 3.4 g/dL (3.4-5.0); Albumin/Globulin Ratio 0.7 (0.8-1.8); Bilirubin, Total 2.5 mg/dL (0.1-1.0); Bun/Creatinine Ratio 11.9 (12.0-20.0); Calcium, Blood 9.1 mg/dL (8.5-10.1); Creatinine, Blood 0.76 mg/dL (0.60-1.20); Globulin, Blood 4.9 g/dL (2.2-4.0); Potassium, Blood 3.4 mmol/L (3.5-5.5); Total Protein, Blood 8.3 g/dL (6.4-8.2)
[2024-12-31 02:05] LABS: Source, Urine Clean Catch
[2024-12-31 02:16] LABS: Appearance, Urine Cloudy (Clear); Blood, Urine 2+ (Neg); Color, Urine Amber (P-Yellow); Glucose Qualitative, Urine Neg (Neg); Ketones, Urine 1+ (Neg); Leukocyte Esterase, Urine 3+ (Neg); Nitrite, Urine Pos (Neg); Protein, Urine 3+ (Neg); Urobilinogen, Urine 1+ (Normal)
[2024-12-31 02:23] LABS: Bilirubin, Urine 1+ (Neg)
[2024-12-31 02:24] LABS: Amorphous Light (0-Heavy); Bacteria Many /hpf; Hyaline Casts 0-2 /lpf (0-2); Squamous Epithelial Cells Rare /hpf (Few); White Blood Cells, Urine 50-100 /hpf (0-5)
[2024-12-31] MEDS ORDERED: CefTRIAXone Sodium 1,000 MG in NS 50 ML IV ONE (02:35)
[2024-12-31] MEDS ORDERED: CEFP200 PO (05:11)
[2024-12-31 05:25] VITALS: BP 132/69
[2024-12-31] MEDS ORDERED: Ibuprofen600 MG PO (05:29)
[2024-12-31] MEDS ORDERED: ONDA4ODT MM (05:29)
[2024-12-31] MEDS ORDERED: RX Prepack 2 Tabs Ondansetron ODT 4MG UD ONE (05:30)
== END 2024-12-31 05:37 | disposition home or self-care (01) ==
LOC: ER 22:29
PROVIDERS: Emergency Medicine
DX: N39.0 Urinary tract infection, site not specified (principal); E86.0 Dehydration; R00.0 Tachycardia, unspecified; D72.829 Elevated white blood cell count, unspecified; R11.2 Nausea with vomiting, unspecified; J45.909 Unspecified asthma, uncomplicated; F17.220 Nicotine dependence, chewing tobacco, uncomplicated
CPT/HCPCS: 71046; 74177; 80053; 81001; 83605; 85025; 87040; 87077; 87086; 87186; 87428-QW; 99284-25; A9270; J0696; J1885; J7030; Q9967

== ENCOUNTER 2025-09-17 10:14 | Emergency (ER) | payer OTHER ==
[~2025-09-17] VITALS: Ht 175.3 cm; Wt 63.5 kg
[~2025-09-17 10:14] MED LIST changes: +CEFP200 PO; +Ibuprofen600 MG PO; +ONDA4ODT MM
[2025-09-17 11:05] LABS: BASOPHILS ABSOLUTE AUTO 0.03 K/mm3 (0.00-0.23); BASOPHILS PERCENT AUTO 0 % (0-2); EOSINOPHILS ABSOLUTE AUTO 0.05 K/mm3 (0.00-0.68); EOSINOPHILS PERCENT AUTO 1 % (0-6); Hematocrit 47.9 % (37.0-53.0); Hemoglobin 16.5 g/dL (13.5-17.5); IMMATURE GRAN ABSOLUTE AUTO 0.02 K/mm3 (0.00-0.10); IMMATURE GRAN PERCENT AUTO 0 % (0-1); LYMPHOCYTES ABSOLUTE AUTO 1.28 K/mm3 (0.84-5.20); LYMPHOCYTES PERCENT AUTO 16 % (21-46); MONOCYTES ABSOLUTE AUTO 0.96 K/mm3 (0.16-1.47); MONOCYTES PERCENT AUTO 12 % (4-13); Mean Corpuscular HGB Conc 34.4 g/dL (31.5-36.5); Mean Corpuscular Volume 97 fL (80-100); NEUTROPHILS ABSOLUTE AUTO 5.56 K/mm3 (1.96-9.15); NEUTROPHILS PERCENT AUTO 70 % (41-73); NRBC ABSOLUTE 0.00 K/mm3 (0.00-0.02); NRBC Auto 0.0 /100 WBC (0.0-0.2); Platelet Count 176 K/mm3 (150-400); RDW Coefficient Variation 12.1 % (11.7-14.2); RDW Standard Deviation 43.5 fL (35.1-46.3)
[2025-09-17 11:29] LABS: Alanine Aminotransfer (ALT/SGP 148.0 U/L (12-78); Albumin, Blood 3.5 g/dL (3.4-5.0); Albumin/Globulin Ratio 0.7 (0.8-1.8); Anion Gap 13.0 mmol/L (3-11); Aspartate Aminotrans (AST/SGOT 260.0 U/L (12-37); Bilirubin, Total 1.4 mg/dL (0.1-1.0); Blood Urea Nitrogen 6.0 mg/dL (8-24); CO2, Blood 27.0 mmol/L (21-32); Calcium, Blood 9.1 mg/dL (8.5-10.1); Chloride, Blood 98.0 mmol/L (98-108); Creatinine, Blood 0.71 mg/dL (0.60-1.20); Globulin, Blood 5.1 g/dL (2.2-4.0); Glucose, Blood 92.0 mg/dL (70-99); Potassium, Blood 3.2 mmol/L (3.5-5.5); Sodium, Blood 135.0 mmol/L (136-145); Total Protein, Blood 8.6 g/dL (6.4-8.2)
[2025-09-17 11:47] LABS: Influenza A, PCR NEGATIVE (NEGATIVE); Influenza B, PCR NEGATIVE (NEGATIVE); Resp Syncytial Virus, PCR NEGATIVE (NEGATIVE); SARS-Cov-2 (COVID-19) PCR, MMC NEGATIVE (NEGATIVE)
[2025-09-17 15:43] VITALS: BP 145/93
== END 2025-09-17 15:45 | disposition home or self-care (01) ==
LOC: ER 10:14
PROVIDERS: Student in an Organized Health Care Education/Training Program
DX: R20.2 Paresthesia of skin (principal); E87.6 Hypokalemia; J45.909 Unspecified asthma, uncomplicated; Z87.891 Personal history of nicotine dependence; Z79.899 Other long term (current) drug therapy
CPT/HCPCS: 70450; 80053; 85025; 87637; 99284-25; A9270

== ENCOUNTER 2025-10-15 10:02 | Emergency (ER) | payer OTHER ==
[~2025-10-15] VITALS: Ht 175.3 cm; Wt 64.9 kg
[2025-10-15 11:41] LABS: BASOPHILS ABSOLUTE AUTO 0.04 K/mm3 (0.00-0.23); BASOPHILS PERCENT AUTO 1 % (0-2); EOSINOPHILS ABSOLUTE AUTO 0.10 K/mm3 (0.00-0.68); EOSINOPHILS PERCENT AUTO 1 % (0-6); Hematocrit 42.1 % (37.0-53.0); Hemoglobin 15.4 g/dL (13.5-17.5); IMMATURE GRAN ABSOLUTE AUTO 0.04 K/mm3 (0.00-0.10); IMMATURE GRAN PERCENT AUTO 1 % (0-1); LYMPHOCYTES ABSOLUTE AUTO 1.42 K/mm3 (0.84-5.20); LYMPHOCYTES PERCENT AUTO 17 % (21-46); MONOCYTES ABSOLUTE AUTO 1.15 K/mm3 (0.16-1.47); MONOCYTES PERCENT AUTO 14 % (4-13); Mean Corpuscular HGB Conc 36.6 g/dL (31.5-36.5); Mean Corpuscular Volume 92 fL (80-100); NEUTROPHILS ABSOLUTE AUTO 5.53 K/mm3 (1.96-9.15); NEUTROPHILS PERCENT AUTO 67 % (41-73); NRBC ABSOLUTE 0.02 K/mm3 (0.00-0.02); NRBC Auto 0.2 /100 WBC (0.0-0.2); Platelet Count 215 K/mm3 (150-400); RDW Coefficient Variation 11.7 % (11.7-14.2); RDW Standard Deviation 39.2 fL (35.1-46.3)
[2025-10-15 12:08] LABS: Magnesium, Blood 1.9 mg/dL (1.6-2.4)
[2025-10-15 12:11] LABS: Alanine Aminotransfer (ALT/SGP 165.0 U/L (12-78); Albumin, Blood 2.7 g/dL (3.4-5.0); Albumin/Globulin Ratio 0.6 (0.8-1.8); Anion Gap 8.0 mmol/L (3-11); Aspartate Aminotrans (AST/SGOT 299.0 U/L (12-37); Bilirubin, Total 3.1 mg/dL (0.1-1.0); Blood Urea Nitrogen 15.0 mg/dL (8-24); CO2, Blood 29.0 mmol/L (21-32); Calcium, Blood 8.9 mg/dL (8.5-10.1); Chloride, Blood 90.0 mmol/L (98-108); Creatinine, Blood 0.64 mg/dL (0.60-1.20); Globulin, Blood 4.2 g/dL (2.2-4.0); Glucose, Blood 107.0 mg/dL (70-99); Potassium, Blood 2.2 mmol/L (3.5-5.5); Sodium, Blood 125.0 mmol/L (136-145); Total Protein, Blood 6.9 g/dL (6.4-8.2)
[2025-10-15] MEDS ORDERED: Potassium Chl 10MEQ/Water100ML 100 ML IV ONE (12:20)
[2025-10-15] MEDS ORDERED: NS 1,000 ML IV SCH (12:45)
[2025-10-15] MEDS ORDERED: POTCHL20ER PO (14:41)
[2025-10-15 14:45] VITALS: BP 138/93
== END 2025-10-15 14:59 | disposition home or self-care (01) ==
LOC: ER 10:02
PROVIDERS: Emergency Medicine
DX: E87.6 Hypokalemia (principal); E87.1 Hypo-osmolality and hyponatremia; R74.01 Elevation of levels of liver transaminase levels; J45.909 Unspecified asthma, uncomplicated; Z87.891 Personal history of nicotine dependence
CPT/HCPCS: 80053; 83735; 85025; 96365; 99284-25; A9270; J3480; J7030